=== PATIENT | female | born 1965 | race Caucasian/White ===

== ENCOUNTER 2024-06-25 09:18 | Inpatient (IN) | payer OTHER, SELFPAY ==
--- NOTE | 2024-06-25 | ECG_ITS ---
Test Reason : TACHYCARDIA Blood Pressure : / mmHG Vent. Rate : 136 BPM Atrial Rate : 136 BPM P-R Int : 134 ms QRS Dur : 072 ms QT Int : 288 ms P-R-T Axes : 037 065 056 degrees QTc Int : 433 ms Sinus tachycardia Artifact present Borderline ECG When compared with ECG of 29-NOV-2019 10:04, Precordial T wave changes not present anymore Referred By: Generic ED Physician Electronically Signed By:Jose Kidd
--- NOTE | 2024-06-25 | ECG_ITS ---
Test Reason : elevated troponin Blood Pressure : / mmHG Vent. Rate : 127 BPM Atrial Rate : 127 BPM P-R Int : 126 ms QRS Dur : 070 ms QT Int : 318 ms P-R-T Axes : 038 038 060 degrees QTc Int : 462 ms Poor data quality, interpretation may be adversely affected Sinus tachycardia Otherwise normal ECG When compared with ECG of 25-JUN-2024 09:37, Criteria for Anterior infarct are no longer Present Referred By: Marie Godwin Electronically Signed By:Jose Kidd
[2024-06-25 09:34] VITALS: BP 183/112; BP 184/103; PULSE 130; PULSE 136; RESP 18; TEMP 36.8; O2SAT 98; BMI 32.0
--- NOTE | 2024-06-25 10:01 | ED_ITS ---
HPI - Alcohol General Chief Complaint: ETOH/Substance Use Stated Complaint: Nausea, vomiting Time Seen by Provider: 06/25/24 09:40 Source: patient Mode of arrival: EMS Limitations: no limitations History of Present Illness ED Provider: Dr. 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 Patient states that she had 7 months of sobriety but secondary to social stressors she started drinking again last night. She states that she drank 2 pints of vodka last night with the last drink being at 06:00. She states that around midnight she developed a pressure in her chest. She points to her sternum when asked to localize the pain. She states it is a constant, pressure-like pain which is 8/10 at its worse. The pain does not change with breathing and with movement. She states she has had similar pain in the past. She was also complaining of diffuse abdominal pain which is increased in the left lower quadrant area where she has a hernia. She states she has had nausea and vomited several times prior to coming to the emergency department and during transport. Patient states she does have an anxiety disorder and takes benzodiazepines for this. She also states she gets alcohol withdrawal and alcohol withdrawal seizures. She also has had DTs with hallucinations in the past Related Data Home Medications ?Medication ?Instructions ?Recorded ?Confirmed clonazepam 0.5 mg tablet 0.5 mg PO BID 06/25/24 duloxetine 30 mg capsule,delayed 30 mg PO BID 06/25/24 release esomeprazole magnesium 20 mg 20 mg PO BID 06/25/24 capsule,delayed release folic acid 1 mg tablet 1 mg PO DAILY 06/25/24 gabapentin 600 mg tablet 600 mg PO TID 06/25/24 levothyroxine 137 mcg tablet 137 mcg PO DAILY 06/25/24 lisinopril 20 mg tablet 20 mg PO DAILY 06/25/24 magnesium oxide 400 mg (241.3 mg 400 mg PO DAILY 06/25/24 magnesium) tablet metoprolol succinate 50 mg 50 mg PO DAILY 06/25/24 tablet,extended release 24 hr trazodone 150 mg tablet 150 mg PO BEDTIME 06/25/24 vitamin B complex (Vitamins B 1 tab PO DAILY 06/25/24 Complex tablet) Allergies Allergy/AdvReac Type Severity Reaction Status Date / Time codeine [Codeine] Allergy Mild SENSATION-BUGS Verified 06/25/24 09:37 CRAWLING ON SKIN acetaminophen [Vicodin] Allergy Unknown Unknown Verified 06/25/24 09:37 hydrocodone [Vicodin] Allergy Unknown Unknown Verified 06/25/24 09:37 Iodinated Contrast Media Allergy Unknown ITCHY,RASH Verified 06/25/24 09:37 [CONTRAST, IV] Codeine Sulfate Allergy Unknown Unknown Uncoded 06/25/24 09:37 From VICODIN Allergy Unknown SENSATION-BUGS Uncoded 05/18/20 15:13 CRAWLING ON SKIN IVP contrast dye Allergy Unknown Unknown Uncoded 06/25/24 09:37 Review of Systems 2 Review of Systems: Yes all other systems are reviewed and are negative [facility] Past Medical History [facility] Narrative: Social history: She denies tobacco use. She was sober for several months but drank 2 pt of vodka last night with the last drink being at 06:00. She denies drug use. Medical History (Updated 06/25/24 @ 17:04 by Luis Kelly MD) History of ETOH abuse Social History Social History Alcohol intake: current Alcohol intake frequency: 3 or more drinks per day Alcohol type: hard liquor Smoked in Last 30 Days: No Advance Directives: No Advance Directives Information Provided: Yes Do you have a plan to hurt others: No Plan Patient : No Physical Exam ED Vital Signs: Vital Signs - 24 hr 06/25/24 09:34 06/25/24 11:38 06/25/24 15:01 Temperature 98.3 F 98.3 F 97.7 F Pulse Rate 136 H 140 H 148 H Respiratory Rate 18 22 H 18 Blood Pressure 184/103 H 168/88 H 161/78 H Pulse Oximetry 98 98 100 Oxygen Delivery Method Room Air Room Air Room Air BMI result Body Mass Index 32.0 Vital signs revealed an elevated heart rate of 136 and an elevated blood pressure of 184/103 otherwise unremarkable Exam: General: Awake, alert, the patient appears to be very anxious, she was tremulous, she was diaphoretic Head: Normocephalic, atraumatic EENT: PERRL, Lids normal, sclera normal, conjunctiva normal, nose normal , ears normal, throat without erythema or exudates Neck: Supple, no adenopathy Lung: breath sounds symmetric, no wheezing, rales or rhonchi Chest: symmetric movement, nontender Heart: tachycardia with a regular rate, normal S1-S2 no murmurs rubs or gallops Abdomen: soft, obese, mild to moderate diffuse tenderness, increased tenderness in the left lower quadrant, normoactive bowel sounds, no voluntary or involuntary guarding Back: no vertebral tenderness, no CVAT Extremities: no deformities, moves all extremities symmetrically Neuro: Awake, alert, oriented, normal speech, cranial nerves intact, moves all extremities symmetrically Skin: Patient has erythema to her face which is not warm to touch, she also had several excoriated lesion with no evidence for cellulitis Psych: Anxious, cooperative Medical Decision Making Medical Decision Making MDM Narrative: 59-year-old female history of alcohol use disorder with delirium tremens and alcohol withdrawal seizure, hypertension, 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 She drank 2 pt of vodka over the last 24 hours her last drink at 06:00 hours this morning. On presentation the patient was diaphoretic, tremulous, vital signs revealed elevated blood pressure of 184/103 at elevated pulse of 130. Patient had diffuse abdominal tenderness with increased tenderness in her left lower quadrant area. Differential diagnosis: ?Includes but is not limited to myocardial infarction, myocardial ischemia, alcohol withdrawal, anxiety, electrolyte abnormalities, anemia Course: 16:57 My interpretation patient's laboratory evaluation as follows: CBC was normal. Bicarb low 14. BUN elevated 25 with a normal creatinine of 1.26. AST and ALT elevated 71 and 85. Ethanol level elevated 89. Lipase normal 17. High sensitive troponin I was detectable but not elevated at 4.3. Repeat is pending. Patient's presentation was consistent with alcohol withdrawal and she was placed on the phenobarbital protocol 12 milligrams/kilogram IM in 3 divided doses. Patient was also treated with Reglan 10 mg IV and Benadryl 50 mg IV and required a 2nd dose of these medications to control her nausea. Patient was also treated with normal saline IV x2 L. Patient does appear to improve but she still is hypertensive and tachycardic and will need to be admitted for further manage her alcohol withdrawal. I did discuss admission over tiger text with the covering hospitalist, Dr. Trinh. Admission/Observation Consideration of admission/observation: Escalation of care including admission/observation considered (Yes) Consult Healthcare Provider Management of the patient was discussed with: Hospitalist (Gayathri) Lab Data MDM Lab Attestation statement: I reviewed the patient's lab results. 06/25/24 10:37 06/25/24 10:37 Labs: Lab Results 06/25/24 Range/Units 10:37 WBC 11.0 H (4.8-10.8) X10*3/uL RBC 4.36 (4.20-5.50) X10*6/uL Hgb 14.2 (12.0-16.0) g/dl Hct 42.4 (37.0-47.0) % MCV 97.2 (80.0-98.0) fL MCH 32.6 (27.0-33.0) pg MCHC 33.5 (31.0-35.0) g/dl RDW 14.6 (11.0-16.0) % Plt Count 350 (160-400) X10*3/uL MPV 8.9 L (9.4-12.3) fL Immature Gran % (Auto) 0.3 (0.0-0.4) % Neut % (Auto) 83.6 H (45-73) % Lymph % (Auto) 11.7 L (20-40) % Granite % (Auto) 3.6 (2-11) % Eos % (Auto) 0.0 (0-4) % Baso % (Auto) 0.8 (0-2) % Lymph # (Auto) 1.3 (1.2-4.9) X10*3/uL Granite # (Auto) 0.4 (0.1-1.2) X10*3/uL Eos # (Auto) 0.0 (0.0-0.4) X10*3/uL Baso # (Auto) 0.1 (0.0-0.2) X10*3/uL Abs Immat Gran (auto) 0.03 (0.00-0.03) X10*3/uL Absolute Neuts (auto) 9.2 H (2.0-8.3) x10*3/uL Absolute Nucleated RBC 0.000 (0.0-0.012) X10*3/uL Nucleated RBC % (auto) 0.0 (0.0-0.2) /100WBC Sodium 140 (135-145) mmol/L Potassium 4.5 (3.3-5.1) mmol/L Chloride 93 L (96-108) mmol/L Carbon Dioxide 14 L (22-29) mmol/L Anion Gap 38 H (12-20) BUN 25 H (9-16) mg/dL Creatinine 1.26 (0.5-1.4) mg/dL Estim Creat Clear Calc 46.8 Estimated GFR 43 Random Glucose 116 H (60-115) mg/dL Calcium 10.4 H (8.4-10.2) mg/dL Magnesium 2.1 (1.6-2.6) mg/dL Total Bilirubin 0.4 (0.0-1.0) mg/dL AST 71 H (5-31) U/L ALT 85 H (0-31) U/L Alkaline Phosphatase 75 (39-117) U/L Troponin I High Sens 4.3 (<3.5-17.0) ng/L Total Protein 9.1 H (6.5-8.0) g/dL Albumin 5.2 H (3.5-5.0) g/dL Lipase 17 (8-78) U/L Ethyl Alcohol 89 mg/dL Independent Interpretation I performed an independent interpretation of an: EKG Interpretation: My independent interpretation patient's 12 EKG done at 09:37 hours is as follows: Sinus tachycardia with a rate of 138, normal MO interval, QRS duration and QTC interval, no ST segment elevation, no ST segment depression, no significant T-wave abnormalities, no PACs, no PVCs Chronic Conditions Patient?s care impacted by: Hypertension and Other (Alcohol use disorder) Medications Administered Generic Name Dose Route Start Last Admin Trade Name Freq PRN Reason Stop Dose Admin Phenobarbital Sodium 180 mg 06/25/24 15:00 06/25/24 15:34 Phenobarbital Sodium 130 Mg/Ml Vial Im Q3hx2 IM 06/25/24 18:01 180 mg Q3H ELEAZAR Administration Discontinued Medications Generic Name Dose Route Start Last Admin Trade Name Freq PRN Reason Stop Dose Admin Diphenhydramine HCl 50 mg 06/25/24 10:48 06/25/24 12:14 Diphenhydramine Hcl 50 Mg/Ml Vial IVPUSH 06/25/24 10:49 50 mg ONCE STA Administration Sodium Chloride 1,000 mls @ 999 mls/hr 06/25/24 09:53 06/25/24 12:00 Ns IV 06/25/24 10:53 Infused .Q1H1M STA Infusion Lorazepam 2 mg 06/25/24 09:53 06/25/24 10:38 Lorazepam 2 Mg/Ml Vial IVPUSH 06/25/24 09:54 2 mg STAT STA Administration Metoclopramide HCl 10 mg 06/25/24 10:48 06/25/24 12:14 Metoclopramide Hcl 10 Mg/2 Ml Vial IVPUSH 06/25/24 10:49 10 mg ONCE STA Administration Phenobarbital Sodium 240 mg 06/25/24 12:15 06/25/24 12:45 Phenobarbital Sodium 130 Mg/Ml Im Once IM 06/25/24 12:16 240 mg ONCE ONE Administration Critical Care Time Critical Care Time Critical Care Time: Yes Total Critical Care Time: 80 Attestation: Critical Care: The patient was critically ill with a high probability of imminent or life threatening deterioration. I spent greater than 30 minutes of discontinuous time evaluating the patient,delivering critical care at the bedside, discussing and evaluating pertinent data with consultants. Critical care time does not include time spent performing separately billable procedures or teaching. Total time spent performing critical care was 80 minutes. Discharge Plan Discharge Patient Disposition: Admitted As Inpatient Print Language: Spanish
[2024-06-25] MEDS: 0.9 % Sodium Chloride 1,000 ML 999 ML IV ×2 (10:38→17:02)
[2024-06-25] MEDS: LORazepam 2 MG/ML VIAL IVPUSH (10:38)
[2024-06-25 10:42] LABS: MANUAL DIFF FLAG NO
--- NOTE | 2024-06-25 10:43 | PC.NURSE ---
pt a&ox2, states she drank alot of vodka overnight after life stressors, bus monitor sinus tach, pt noted to be hypertensive-pt states she did not take any of her normal medications. after a period of time she was c/o chest pain, pt also stated she has a history of withdrawal seizures, seizure pads placed, fall precations placed as well. pt is a difficult stick- provider attempted 2 EJs without success, this nurse attempted 2 IVs to her foot with provider at bedside which were not successful, PA attempted a US guided to upper arm without success the first time, but was able to gain access the second attempt. Nurse educator Enrike was tiger texted and asked to help obtain another site as well, she is currently at bedside attempting access with the new US IV. Pt IVF were hung per order, pt also was given 2mg ativan. pt was moved from bed 14 to bed 17 to have a better visual eye on patient.
[2024-06-25 10:48] LABS: Basophils Absolute Auto 0.1 X10*3/uL (0.0-0.2); Basophils Percent Auto 0.8 % (0-2); Hematocrit 42.4 % (37.0-47.0); Hemoglobin 14.2 g/dl (12.0-16.0); Imm Gran Abs Auto 0.03 X10*3/uL (0.00-0.03); Imm Gran Pct Auto 0.3 % (0.0-0.4); Lymphocytes Absolute Auto 1.3 X10*3/uL (1.2-4.9); Lymphocytes Percent Auto 11.7 % (20-40); Mean Corpuscular HGB Conc 33.5 g/dl (31.0-35.0); Mean Corpuscular Hemoglobin 32.6 pg (27.0-33.0); Mean Corpuscular Volume 97.2 fL (80.0-98.0); Mean Platelet Volume 8.9 fL (9.4-12.3); Monocytes Absolute Auto 0.4 X10*3/uL (0.1-1.2); Monocytes Percent Auto 3.6 % (2-11); Neutrophils Absolute Auto 9.2 x10*3/uL (2.0-8.3); Neutrophils Percent Auto 83.6 % (45-73); Platelet Count 350 X10*3/uL (160-400); Red Blood Count 4.36 X10*6/uL (4.20-5.50); Red Cell Distribution Width 14.6 % (11.0-16.0)
[2024-06-25 11:05] LABS: Alanine Aminotransferase 85 U/L (0-31); Albumin Level 5.2 g/dL (3.5-5.0); Alkaline Phosphatase 75 U/L (39-117); Anion Gap 38 (12-20); Aspartate Amino Transferase 71 U/L (5-31); Bilirubin Total 0.4 mg/dL (0.0-1.0); Blood Urea Nitrogen 25 mg/dL (9-16); Calcium 10.4 mg/dL (8.4-10.2); Carbon Dioxide 14 mmol/L (22-29); Chloride 93 mmol/L (96-108); Creatinine Clr Calc Pharmacy 46.8; Estimated Glomerular Filt Rate 43; Ethanol 89 mg/dL; Glucose Random 116 mg/dL (60-115); Lipase 17 U/L (8-78); Magnesium 2.1 mg/dL (1.6-2.6); Potassium 4.5 mmol/L (3.3-5.1); Sodium 140 mmol/L (135-145); Total Protein 9.1 g/dL (6.5-8.0); Troponin-I High Sensitivity 4.3 ng/L (<3.5-17.0)
[2024-06-25 11:38] VITALS: BP 168/88; PULSE 140; RESP 22; TEMP 36.8; O2SAT 98
[2024-06-25] MEDS: Metoclopramide HCl 10 MG/2 ML VIAL IVPUSH ×2 (12:14→17:02)
[2024-06-25] MEDS: diphenhydrAMINE HCL 50 MG/ML VIAL IVPUSH ×2 (12:14→17:02)
[2024-06-25] MEDS: PHENobarbitaL sodium 130 MG/ML IM ONCE 240 MG IM (12:45)
--- NOTE | 2024-06-25 12:53 | PC.NURSE ---
pt currently a&ox3, rt arm iv access infiltrated- left arm access is patient. court monitor continues to be sinus tach, ciwa was 11, provider has opted to start phenobarb protocol- pt agreeable, seizure precautions intact, fall precautions intact, pt medicated per order, will continue to monitor
[2024-06-25 15:01] VITALS: BP 161/78; PULSE 148; RESP 18; TEMP 36.5; O2SAT 100
[2024-06-25] MEDS: PHENobarbitaL sodium 130 MG/ML VIAL IM Q3Hx2 180 MG IM ×2 (15:34→19:19)
--- NOTE | 2024-06-25 16:07 | PC.NURSE ---
pt c/o lower abd pain, bladder scan performed and pt was requesting a straight cath as she has had a problem urinating in the past. this nurse spoke with the provider who ordered straight cath, this nurse attempted x2 without success, essie Morris attempted x2 without success. Evening provider notified and he did a bedside ultrasound- he is going to speak with the day shift provider and come up with a plan. pt continues to be tachy on the monitoring analyst, she is a&ox3 and calm/watching tv, pt was medicated with second dose of phenobarb. call joaquin within reach, will continue to monitor
--- NOTE | 2024-06-25 17:22 | MHC.EDTECH ---
this tech attempted to draw repeat troponin from pt, pt is a hard stick, phlebotomy to be paged
[2024-06-25 17:36] VITALS: BP 151/85; PULSE 140; RESP 16; TEMP 36.8; O2SAT 98
--- NOTE | 2024-06-25 17:40 | PM.IMHP ---
History of Present Illness Date of Service: 06/25/24 Chief Complaint: Lethargy nausea vomiting 59F PMH alcohol dependence, hypothyroid, mood disorder, hypertension presented with weakness, nausea vomiting. Patient states that she has been 7 months sober but started to drink again about 2 days prior to presentation. Since then has had severe abdominal pain, nausea, vomiting, poor p.o. intake. Patient found to have alcoholic ketoacidosis, also noting difficulty urinating. Review of Systems Review of Systems: Yes all other systems are reviewed and are negative [facility] Medical History History of ETOH abuse Social History Alcohol intake: current Alcohol intake frequency: 3 or more drinks per day Alcohol type: hard liquor Smoked in Last 30 Days: No Advance Directives: No Advance Directives Information Provided: Yes Do you have a plan to hurt others: No Plan Patient : No Meds Allergies Allergy/AdvReac Type Severity Reaction Status Date / Time codeine [Codeine] Allergy Mild SENSATION-BUGS Verified 06/25/24 09:37 CRAWLING ON SKIN acetaminophen [Vicodin] Allergy Unknown Unknown Verified 06/25/24 09:37 hydrocodone [Vicodin] Allergy Unknown Unknown Verified 06/25/24 09:37 Iodinated Contrast Media Allergy Unknown ITCHY,RASH Verified 06/25/24 09:37 [CONTRAST, IV] Codeine Sulfate Allergy Unknown Unknown Uncoded 06/25/24 09:37 From VICODIN Allergy Unknown SENSATION-BUGS Uncoded 05/18/20 15:13 CRAWLING ON SKIN IVP contrast dye Allergy Unknown Unknown Uncoded 06/25/24 09:37 Active Medications: Current Medications Sodium Chloride (Ns) 1,000 mls @ 999 mls/hr IV .Q1H1M STA Stop: 06/25/24 17:50 Last Admin: 06/25/24 17:02 Dose: 999 mls/hr Pharmacy Consult (Consult Rx Etoh Phenob Im/Po) 1 each MISCELLANE ONCE PRN; Protocol PRN Reason: Consult order Phenobarbital (Phenobarbital 15 Mg Tablet) 45 mg PO BID ELEAZAR Stop: 06/27/24 21:01 Phenobarbital (Phenobarbital 30 Mg Tablet) 30 mg PO BID ELEAZAR Stop: 06/29/24 21:01 Phenobarbital (Phenobarbital 30 Mg Tablet) 30 mg PO DAILY [facility] Stop: 07/01/24 09:01 Phenobarbital Sodium (Phenobarbital Sodium 130 Mg/Ml Vial Im Q3hx2) 180 mg IM Q3H ELEAZAR Stop: 06/25/24 18:01 Last Admin: 06/25/24 15:34 Dose: 180 mg Home Medications ?Medication ?Instructions ?Recorded ?Confirmed ?Last Taken ?Type clonazepam 0.5 mg tablet 0.5 mg PO BID 06/25/24 06/25/24 2 Days Ago History ~06/23/24 duloxetine 30 mg capsule,delayed 30 mg PO BID 06/25/24 06/25/24 2 Days Ago History release ~06/23/24 esomeprazole magnesium 20 mg 20 mg PO BID 06/25/24 06/25/24 2 Days Ago History capsule,delayed release ~06/23/24 folic acid 1 mg tablet 1 mg PO DAILY 06/25/24 06/25/24 2 Days Ago History ~06/23/24 gabapentin 600 mg tablet 600 mg PO TID 06/25/24 06/25/24 2 Days Ago History ~06/23/24 levothyroxine 137 mcg tablet 137 mcg PO DAILY@0630 06/25/24 06/25/24 2 Days Ago History ~06/23/24 lisinopril 20 mg tablet 20 mg PO DAILY 06/25/24 06/25/24 2 Days Ago History ~06/23/24 magnesium oxide 400 mg (241.3 mg 400 mg PO DAILY 06/25/24 06/25/24 2 Days Ago History magnesium) tablet ~06/23/24 metoprolol succinate 50 mg 50 mg PO DAILY 06/25/24 06/25/24 2 Days Ago History tablet,extended release 24 hr ~06/23/24 thiamine HCl (vitamin B1) 100 mg 100 mg PO BID 06/25/24 06/25/24 2 Days Ago History tablet ~06/23/24 trazodone 150 mg tablet 150 mg PO BEDTIME 06/25/24 06/25/24 2 Days Ago History ~06/23/24 vitamin B complex (Vitamins B 1 tab PO DAILY 06/25/24 06/25/24 2 Days Ago History Complex tablet) ~06/23/24 Physical Exam Vital Signs and Narrative: Vital Signs: Last Vital Signs Temp 98.2 F 06/25/24 17:36 Pulse 140 H 06/25/24 17:36 Resp 16 06/25/24 17:36 BP 151/85 H 06/25/24 17:36 Pulse Ox 98 06/25/24 17:36 O2 Del Method Room Air 06/25/24 17:36 BMI result Body Mass Index 32.0 Dre complexion, tremulous, abdomen soft and nontender, alert oriented x3 Results Labs 06/25/24 10:37 06/25/24 10:37 Labs: Laboratory Results - last 24 hr 06/25/24 10:37 MCV 97.2 MCH 32.6 MCHC 33.5 RDW 14.6 Plt Count 350 MPV 8.9 L Immature Gran % (Auto) 0.3 Neut % (Auto) 83.6 H Lymph % (Auto) 11.7 L Tate % (Auto) 3.6 Eos % (Auto) 0.0 Baso % (Auto) 0.8 Lymph # (Auto) 1.3 Tate # (Auto) 0.4 Eos # (Auto) 0.0 Baso # (Auto) 0.1 Abs Immat Gran (auto) 0.03 Absolute Neuts (auto) 9.2 H Absolute Nucleated RBC 0.000 Nucleated RBC % (auto) 0.0 Anion Gap 38 H Estim Creat Clear Calc 46.8 Estimated GFR 43 Random Glucose 116 H Calcium 10.4 H Magnesium 2.1 Total Bilirubin 0.4 AST 71 H ALT 85 H Alkaline Phosphatase 75 Troponin I High Sens 4.3 Total Protein 9.1 H Albumin 5.2 H Lipase 17 Ethyl Alcohol 89 Assessment and Plan (1) Abdominal pain: Qualifiers: Abdominal location: generalized Qualified Code(s): R10.84 - Generalized abdominal pain Status: Acute Plan 59F PMH alcohol dependence, hypothyroid, mood disorder, hypertension presented with weakness, nausea vomiting Acute alcoholic ketoacidosis Thiamine, folic acid, IV hydration, monitor Alcohol dependence with withdrawal Reports 7 months sobriety but showing signs of withdrawal, will treat with phenobarb and monitor CIWA Urinary retention due to acute alcohol intoxication Monitor bladder scan, straight cath p.r.n. We will give dose of Flomax Hypothyroid Levothyroxine Mood disorder clonazepam duloxetine Hypertension lisinopirl, toprol DVT prophylaxis with Lovenox Full Code Patient with significant electrolyte abnormalities due to alcohol use also with withdrawal expected require at least 2 midnights inpatient Quality Stroke Does the patient have a stroke diagnosis?: No VTE Prior VTE?: No VTE Risk Level:: Medical - moderate - high VTE Device Contraindication: Treatment Not Indicated VTE Drug Contraindication: N/A - Med Ordered
--- NOTE | 2024-06-25 18:11 | PHA.MEDREC ---
Addendum entered by Katia Virgen RPh 06/25/24 18:44: MED rec checked by [facility] Original Note: Pharmacy Consult ? Medication Reconciliation Pharmacy has completed the medication reconciliation. Confirmed medications with patient. Patient states she has not taken her medications in about 2-3 days.
[2024-06-25 18:23] LABS: Phosphorus 1.7 mg/dL (2.7-4.5)
[2024-06-25 18:55] LABS: Appearance Urine Clear; Color Urine Yellow; Glucose Urine UA Negative (Negative); Leukocyte Esterase Urine Negative (Negative); Nitrite Urine Negative (Negative); PH 5.5 (5.0-9.0); Specific Gravity - Urine 1.025 (1.005-1.025); UMIC TRIGGER UACC YES; Urine Blood Trace (Negative); Urine Ketones >=160 mg/dL (Negative); Urine Protein 100 (2+) mg/dL (Neg-Trace)
[2024-06-25 19:00] LABS: Bacteria Urine None Seen (None Seen); RBC Urine 0-2 /HPF (0-2); Squamous Epithelial Cell Urine 0-2 /HPF (0-2); WBC Urine 0-5 /HPF (0-5)
[2024-06-25 19:04] LABS: Amphetamine Screen Urine Not Detected (Not Detect); Barbiturates, Urine POSITIVE (Not Detect); Benzodiazepines Screen Urine Not Detected (Not Detect); Buprenorphine Scr Not Detected (Not Detect); Cannabinoid Screen Urine Not Detected (Not Detect); Cocaine Screen Urine Not Detected (Not Detect); Fentanyl, urine Not Detected (Not Detect); Methadone Screen, Urine Not Detected (Not Detect); Opiate Screen Urine Not Detected (Not Detect); Oxycodone Screen Urine Not Detected (Not Detect); Phencyclidine Screen Urine Not Detected (Not Detect)
[2024-06-25] MEDS: Tamsulosin HCL 0.4 MG CAPSULE PO (19:20)
[2024-06-25] MEDS: Thiamine HCL 500 MG in 0.9 % Sodium Chloride 100 ML 210 MG IV (19:26)
--- NOTE | 2024-06-25 19:29 | PC.NURSE ---
pt medicated per order/ivf continue to run slowly/iv thiamine running per order, urine was obtained, pt remains sinus tach on offset machine operator
--- NOTE | 2024-06-25 19:37 | PC.NURSE ---
Addendum entered by Candelario Rodriges 06/25/24 19:45: md made aware of all above and temp 99.9F. pt reports 04/10 BEASLEY and requests tylenol, medicated per oct. Original Note: assumed care of pt at this time. sinus tachy on monitor at 140s. noticed trop levels, suggested to MD to repeat, MD ordered for 2100. pt is axox4 was able to urinate sample obtained. pt denies cp/sob. vitals as documented. thiamine incompatible with sodium bicarb, awaiting infusion to start drip. ivf also infusing at this time. call joaquin within reach.
[2024-06-25 19:40] VITALS: BP 162/67; PULSE 140; RESP 22; TEMP 37.7; O2SAT 98
[2024-06-25] MEDS: Acetaminophen 325 MG TABLET 650 MG PO (19:45)
[2024-06-25 20:11] VITALS: BP 167/87; PULSE 140; RESP 18; TEMP 37.1; O2SAT 99
[2024-06-25] MEDS: Sodium Bicarbonate 8.4% 150 MEQ in Dextrose 5 % 850 ML 75 MEQ IV (20:16)
[2024-06-25 21:17] VITALS: BMI 33.5
[2024-06-25] MEDS: DULoxetine HCl 30 MG CAPSULE.DR PO (21:27)
[2024-06-25] MEDS: Melatonin 3 MG TABLET 6 MG PO (21:27)
[2024-06-25] MEDS: traZODone HCL 50 MG TABLET 150 MG PO (21:27)
[2024-06-25] MEDS: Thiamine HCL 100 MG TABLET PO (21:27)
[2024-06-25] MEDS: clonazePAM 0.5 MG TABLET PO (21:27)
[2024-06-25] MEDS: 0.9 % Sodium Chloride Flush 3 ML SYRINGE IVFLUSH (21:28)
[2024-06-25] MEDS: Gabapentin 600 MG TABLET PO (21:28)
--- NOTE | 2024-06-25 21:50 | PM.EVENT ---
Event Note Date of Service: 06/25/24 Event Note: Nurse reported elevated troponin. Will obtain EKG. Giving 1 dose of therapeutic Lovenox and aspirin. Repeat troponin in a.m.. Cardiology consult and echo pending repeat troponin Time Spent With Patient Time: Total time managing care of this patient today ____ minutes.
[2024-06-25 21:51] LABS: Troponin-I High Sensitivity 56.5 ng/L (<3.5-17.0)
[2024-06-25] MEDS: Enoxaparin Sodium 80 MG/0.8 ML SYRINGE SUBCUT (22:25)
[2024-06-25] MEDS: Aspirin 325 MG TABLET PO (22:25)
[2024-06-26] VITALS (8 sets, daily range): BP systolic 118–146; BP diastolic 59–86; PULSE 101–122; RESP 18–20; TEMP 36.1–37.2; O2SAT 93–97
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
[2024-06-26] MEDS: Levothyroxine Sodium 112 MCG, Levothyroxine Sodium 25 MCG 137 MCG PO (06:19)
[2024-06-26] MEDS: Omeprazole 20 MG CAPSULE.DR PO ×2 (06:19→15:51)
[2024-06-26 07:27] LABS: Hematocrit 30.2 % (37.0-47.0); Hemoglobin 10.4 g/dl (12.0-16.0); Mean Corpuscular HGB Conc 34.4 g/dl (31.0-35.0); Mean Corpuscular Volume 95.9 fL (80.0-98.0); Mean Platelet Volume 9.6 fL (9.4-12.3); Platelet Count 178 X10*3/uL (160-400); Red Blood Count 3.15 X10*6/uL (4.20-5.50); Red Cell Distribution Width 14.1 % (11.0-16.0); White Blood Count 4.5 X10*3/uL (4.8-10.8)
[2024-06-26 07:37] LABS: Troponin-I High Sensitivity 20.3 ng/L (<3.5-17.0)
[2024-06-26 07:45] LABS: Alanine Aminotransferase 44 U/L (0-31); Albumin Level 3.7 g/dL (3.5-5.0); Alkaline Phosphatase 50 U/L (39-117); Aspartate Amino Transferase 52 U/L (5-31); Bilirubin Direct 0.2 mg/dL (0.0-0.5); Bilirubin Total 0.8 mg/dL (0.0-1.0); Blood Urea Nitrogen 8 mg/dL (9-16); Estimated Glomerular Filt Rate > 60; Glucose Fasting 130 mg/dL (60-99); Magnesium 1.7 mg/dL (1.6-2.6); Total Protein 6.3 g/dL (6.5-8.0)
[2024-06-26 08:05] LABS: Anion Gap 20 (12-20); Calcium 8.1 mg/dL (8.4-10.2); Carbon Dioxide 23 mmol/L (22-29); Chloride 95 mmol/L (96-108); Potassium 3.8 mmol/L (3.3-5.1); Sodium 134 mmol/L (135-145)
[2024-06-26] MEDS: Thiamine HCL 100 MG TABLET PO ×2 (08:50→21:05)
[2024-06-26] MEDS: Multivitamin TABLET 1 TAB PO (08:50)
[2024-06-26] MEDS: Sodium,Potassium Phosphates POWD.PACK 2 PACKET PO (08:50)
[2024-06-26] MEDS: Gabapentin 600 MG TABLET PO ×3 (08:50→21:06)
[2024-06-26] MEDS: PHENobarbitaL 15 MG TABLET 45 MG PO ×2 (08:50→21:06)
[2024-06-26] MEDS: DULoxetine HCl 30 MG CAPSULE.DR PO ×2 (08:50→21:06)
[2024-06-26] MEDS: Metoprolol Succinate ER 50 MG TAB.ER.24H PO (08:50)
[2024-06-26] MEDS: clonazePAM 0.5 MG TABLET PO ×2 (08:50→21:06)
[2024-06-26] MEDS: 0.9 % Sodium Chloride Flush 3 ML SYRINGE IVFLUSH (08:51)
[2024-06-26] MEDS: Magnesium Oxide 400 MG TABLET PO (08:51)
[2024-06-26] MEDS: lisinopriL 20 MG TABLET PO (08:51)
[2024-06-26] MEDS: Enoxaparin Sodium 40 MG/0.4 ML SYRINGE SUBCUT (08:51)
[2024-06-26] MEDS: Folic Acid 1 MG TABLET PO (08:51)
[2024-06-26] MEDS: Sodium Bicarbonate 8.4% 150 MEQ in Dextrose 5 % 850 ML 75 MEQ IV (08:52)
--- NOTE | 2024-06-26 09:08 | HO.PM.IMPN ---
Subjective Subjective Date of Service: 06/26/24 Interval History: less nausea today Physical Exam Vital Signs: Vital Signs: Last Vital Signs Temp 97.3 F 06/26/24 07:13 Pulse 105 H 06/26/24 08:50 Resp 18 06/26/24 07:13 BP 146/82 H 06/26/24 08:51 Pulse Ox 93 06/26/24 07:13 O2 Del Method Room Air 06/26/24 07:13 BMI result Body Mass Index 33.5 less tremulous, General: AO X 3, no acute distress Resp: CTA bilateral, no accessory muscles used CVS: S1,S2,RRR GI: soft, non tender, non distended Neuro: motor grossly intact, alert Psych: appropriate affect, appropriate insight Objective Data Active Medications Acetaminophen (Acetaminophen 325 Mg Tablet) 650 mg PO Q6H PRN PRN Reason: Pain, Mild (Pain Scale 1-3), fever or headache Last Admin: 06/25/24 19:45 Dose: 650 mg Documented By: FRANSICO Calcium Carbonate (Calcium Carbonate 750 Mg Tab.Chew) 750 mg PO Q4H PRN PRN Reason: Heartburn Clonazepam (Clonazepam 0.5 Mg Tablet) 0.5 mg PO BID [facility] Last Admin: 06/26/24 08:50 Dose: 0.5 mg Documented By: BRANDT Duloxetine HCl (Duloxetine Hcl 30 Mg Capsule.Dr) 30 mg PO BID [facility] Last Admin: 06/26/24 08:50 Dose: 30 mg Documented By: BRANDT Enoxaparin Sodium (Enoxaparin Sodium 40 Mg/0.4 Ml Syringe) 40 mg SUBCUT Q24H [facility] Last Admin: 06/26/24 08:51 Dose: 40 mg Documented By: BRANDT Folic Acid (Folic Acid 1 Mg Tablet) 1 mg PO DAILY [facility] Last Admin: 06/26/24 08:51 Dose: 1 mg Documented By: BRANDT Gabapentin (Gabapentin 600 Mg Tablet) 600 mg PO TID [facility] Last Admin: 06/26/24 08:50 Dose: 600 mg Documented By: BRANDT Dextrose/Sodium Chloride (D5ns) 1,000 mls @ 100 mls/hr IVCONT .Q10H [facility] Levothyroxine Sodium 112 mcg/ (Levothyroxine Sodium 25 mcg) 137 mcg PO DAILY@0600 [facility] Last Admin: 10/26/24 06:19 Dose: 137 mcg Documented By: JENY Lisinopril (Lisinopril 20 Mg Tablet) 20 mg PO DAILY [facility]; Protocol Last Admin: 06/26/24 08:51 Dose: 20 mg Documented By: BRANDT Magnesium Hydroxide (Milk Of Magnesia 30 Ml Oral.Susp) 30 ml PO DAILY PRN PRN Reason: Constipation Magnesium Oxide (Magnesium Oxide 400 Mg Tablet) 400 mg PO DAILY [facility] Last Admin: 06/26/24 08:51 Dose: 400 mg Documented By: BRANDT Melatonin (Melatonin 3 Mg Tablet) 6 mg PO BEDTIME PRN PRN Reason: Insomnia Last Admin: 06/25/24 21:27 Dose: 6 mg Documented By: JENY Metoprolol Succinate (Metoprolol Succinate Er 50 Mg Tab.Er.24h) 50 mg PO DAILY [facility]; Protocol Last Admin: 06/26/24 08:50 Dose: 50 mg Documented By: BRANDT Multivitamins/Vitamin C (Multivitamin Tablet) 1 tab PO DAILY [facility] Last Admin: 06/26/24 08:50 Dose: 1 tab Documented By: BRANDT Omeprazole (Omeprazole 20 Mg Capsule.Dr) 20 mg PO BID@0630,1630 [facility] Last Admin: 06/26/24 06:19 Dose: 20 mg Documented By: JENY Pharmacy Consult (Consult Rx Etoh Phenob Im/Po) 1 each MISCELLANE ONCE PRN; Protocol PRN Reason: Consult order Phenobarbital (Phenobarbital 15 Mg Tablet) 45 mg PO BID [facility] Stop: 06/27/24 21:01 Last Admin: 06/26/24 08:50 Dose: 45 mg Documented By: BRANDT Phenobarbital (Phenobarbital 30 Mg Tablet) 30 mg PO BID [facility] Stop: 06/29/24 21:01 Phenobarbital (Phenobarbital 30 Mg Tablet) 30 mg PO DAILY [facility] Stop: 07/01/24 09:01 Sodium Chloride (0.9 % Sodium Chloride Flush 3 Ml Syringe) [address] [facility] Last Admin: 06/26/24 08:51 Dose: 3 ml Documented By: BRANDT Thiamine HCl (Thiamine Hcl 100 Mg Tablet) 100 mg PO BID [facility] Last Admin: 06/26/24 08:50 Dose: 100 mg Documented By: BRANDT Trazodone HCl (Trazodone Hcl 50 Mg Tablet) 150 mg PO BEDTIME [facility] Last Admin: 06/25/24 21:27 Dose: 150 mg Documented By: JENY Labs 06/26/24 06:34 06/26/24 06:34 Labs: Laboratory Results - last 24 hr 06/25/24 06/25/24 06/25/24 10:37 16:10 17:57 MCV 97.2 MCH 32.6 MCHC 33.5 RDW 14.6 Plt Count 350 MPV 8.9 L Immature Gran % (Auto) 0.3 Neut % (Auto) 83.6 H Lymph % (Auto) 11.7 L [place] % (Auto) 3.6 Eos % (Auto) 0.0 Baso % (Auto) 0.8 Lymph # (Auto) 1.3 [place] # (Auto) 0.4 Eos # (Auto) 0.0 Baso # (Auto) 0.1 Abs Immat Gran (auto) 0.03 Absolute Neuts (auto) 9.2 H Absolute Nucleated RBC 0.000 Nucleated RBC % (auto) 0.0 Anion Gap 38 H Estim Creat Clear Calc 46.8 Estimated GFR 43 Random Glucose 116 H Fasting Glucose Calcium 10.4 H Phosphorus 1.7 L Magnesium 2.1 Total Bilirubin 0.4 Direct Bilirubin AST 71 H ALT 85 H Alkaline Phosphatase 75 Troponin I High Sens 4.3 56.5 H* D 35.0 H Total Protein 9.1 H Albumin 5.2 H Lipase 17 Urine Color Urine Appearance Urine pH Ur Specific [place] Urine Protein Urine Glucose (UA) Urine Ketones Urine Blood Urine Nitrite Ur Leukocyte Esterase Urine RBC Urine WBC Ur Squamous Epith Cells Urine Bacteria Hyaline Casts Urine Opiates Screen Ur Buprenorphine Scrn Ur Oxycodone Screen Urine Methadone Screen Urine Fentanyl Screen Ur Barbiturates Screen Ur Phencyclidine Scrn Ur Amphetamines Screen U Benzodiazepines Scrn Urine Cocaine Screen U Marijuana (THC) Screen Ethyl Alcohol 89 06/25/24 06/26/24 18:48 06:34 MCV 95.9 MCH 33.0 MCHC 34.4 RDW 14.1 Plt Count 178 D MPV 9.6 Immature Gran % (Auto) Neut % (Auto) Lymph % (Auto) [place] % (Auto) Eos % (Auto) Baso % (Auto) Lymph # (Auto) [place] # (Auto) Eos # (Auto) Baso # (Auto) Abs Immat Gran (auto) Absolute Neuts (auto) Absolute Nucleated RBC 0.000 Nucleated RBC % (auto) 0.0 Anion Gap 20 Estim Creat Clear Calc 65.0 Estimated GFR > 60 Random Glucose Fasting Glucose 130 H Calcium 8.1 L D Phosphorus Magnesium 1.7 Total Bilirubin 0.8 Direct Bilirubin 0.2 AST 52 H ALT 44 H Alkaline Phosphatase 50 Troponin I High Sens 20.3 H Total Protein 6.3 L Albumin 3.7 Lipase Urine Color Yellow Urine Appearance Clear Urine pH 5.5 Ur Specific Mildred 1.025 Urine Protein 100 (2+) H Urine Glucose (UA) Negative Urine Ketones >=160 Urine Blood Trace H Urine Nitrite Negative Ur Leukocyte Esterase Negative Urine RBC 0-2 Urine WBC 0-5 Ur Squamous Epith Cells 0-2 Urine Bacteria None Seen Hyaline Casts 3-5 Urine Opiates Screen Not Detected Ur Buprenorphine Scrn Not Detected Ur Oxycodone Screen Not Detected Urine Methadone Screen Not Detected Urine Fentanyl Screen Not Detected Ur Barbiturates Screen POSITIVE H Ur Phencyclidine Scrn Not Detected Ur Amphetamines Screen Not Detected U Benzodiazepines Scrn Not Detected Urine Cocaine Screen Not Detected U Marijuana (THC) Screen Not Detected Ethyl Alcohol Assessment and Plan (1) Abdominal pain: Status: Acute Plan 59F PMH alcohol dependence, hypothyroid, mood disorder, hypertension presented with weakness, nausea vomiting Acute alcoholic ketoacidosis Thiamine, folic acid, IV hydration, improving elevated troponin suspect demand ischemia no evidence of ACS follow up cardiology Alcohol dependence with withdrawal Reports 7 months sobriety but showing signs of withdrawal, will treat with phenobarb and monitor CIWA Urinary retention due to acute alcohol intoxication resolved Hypothyroid Levothyroxine Mood disorder clonazepam duloxetine Hypertension lisinopirl, toprol DVT prophylaxis with Lovenox Full Code reason for continued hospitalization:still with withdrawal symptoms Quality Stroke Does the patient have a stroke diagnosis?: No VTE Prior VTE?: No VTE Risk Level:: Medical - moderate - high VTE Device Contraindication: Treatment Not Indicated VTE Drug Contraindication: N/A - Med Ordered
[2024-06-26] MEDS: Dextrose 5 % and 0.9 % NaCl 1,000 ML 100 ML IVCONT ×2 (09:27→19:25)
--- NOTE | 2024-06-26 10:23 | MHC.RECOVRN ---
?AUDIT-C?Brief Intervention Pt had positive screen for unhealthy alcohol use on admission, subsequently met with t/w to discuss alcohol use and recovery supports/options. Pt voices concern regarding alcohol use and is aware that drinking at unhealthy levels is known to increase risk of alcohol related health problems. Pt reports earlier this week drinking 2 pints of vodka after being sober for 7 months . Pt expresses how alcohol use has impacted health, including negative outcomes such as her having increased falls, showing me cuts on her hands as we were talking. Discussed risk reduction strategies including drinking below the recommended limit. Provided pt with written resources including information on inpatient and outpatient treatment, TRICE, harm reduction, and recovery coaching. Pt plans to to reach out to her already established acetone recovery worker upon discharge, patient denies our services at this time. Pt provided with t/w contact information if questions or concerns arise. Denies other questions or concerns at this time.?
[2024-06-26] MEDS: Acetaminophen 325 MG TABLET 650 MG PO (12:33)
--- NOTE | 2024-06-26 13:21 | MHC.CM.PN ---
PT REPORTS SHE LIVES ALONE AND HAS A VEGETABLES COOK 2X/WEEK SHE HAS A ROLLATOR, GRAB BARS AND A SHOWER CHAIR FOR DME SHE SAYS SHE HAS A HCP NAMING HER DAUGHTER, COPY REQUESTED PT DOES NOT KNOW THE NAME OF HER PCP BUT SAYS SHE GOES TO [facility] IMM DELIVERED DCP: HOME RESUME VEGETABLES COOK SERVICES VEGETABLES COOK TO TRANSPORT
[2024-06-26] MEDS: PHENobarbitaL sodium 130 MG/ML VIAL 65 MG IM (16:42)
[2024-06-26] MEDS: traZODone HCL 50 MG TABLET 150 MG PO (21:05)
[2024-06-27] VITALS (7 sets, daily range): BP systolic 130–157; BP diastolic 77–99; PULSE 94–111; RESP 16–20; TEMP 36.1–37.2; O2SAT 97–100
[2024-06-27] MEDS: Acetaminophen 325 MG TABLET 650 MG PO (03:41)
[2024-06-27] MEDS: Dextrose 5 % and 0.9 % NaCl 1,000 ML 100 ML IVCONT ×2 (04:49→15:14)
[2024-06-27] MEDS: Levothyroxine Sodium 112 MCG, Levothyroxine Sodium 25 MCG 137 MCG PO (06:06)
[2024-06-27] MEDS: Omeprazole 20 MG CAPSULE.DR PO ×2 (06:06→15:13)
[2024-06-27 07:07] LABS: Hematocrit 31.7 % (37.0-47.0); Hemoglobin 10.4 g/dl (12.0-16.0); Mean Corpuscular HGB Conc 32.8 g/dl (31.0-35.0); Mean Corpuscular Hemoglobin 32.8 pg (27.0-33.0); Mean Platelet Volume 9.5 fL (9.4-12.3); Platelet Count 144 X10*3/uL (160-400); Red Blood Count 3.17 X10*6/uL (4.20-5.50)
[2024-06-27 07:09] LABS: Alanine Aminotransferase 52 U/L (0-31); Albumin Level 3.7 g/dL (3.5-5.0); Alkaline Phosphatase 50 U/L (39-117); Anion Gap 13 (12-20); Aspartate Amino Transferase 60 U/L (5-31); Bilirubin Direct 0.1 mg/dL (0.0-0.5); Bilirubin Total 0.4 mg/dL (0.0-1.0); Blood Urea Nitrogen 4 mg/dL (9-16); Calcium 8.1 mg/dL (8.4-10.2); Carbon Dioxide 26 mmol/L (22-29); Chloride 102 mmol/L (96-108); Creatinine Clr Calc Pharmacy 74.6; Estimated Glomerular Filt Rate > 60; Glucose Fasting 132 mg/dL (60-99); Magnesium 1.6 mg/dL (1.6-2.6); Phosphorus 1.5 mg/dL (2.7-4.5); Potassium 3.4 mmol/L (3.3-5.1); Sodium 138 mmol/L (135-145); Total Protein 6.4 g/dL (6.5-8.0)
--- NOTE | 2024-06-27 08:22 | HO.PM.IMPN ---
Subjective Subjective Date of Service: 06/27/24 Interval History: Overall improved but still with withdrawal symptoms along with diarrhea and nausea Physical Exam Vital Signs: Vital Signs: Last Vital Signs Temp 96.9 F 06/27/24 03:58 Pulse 111 H 06/27/24 03:58 Resp 20 06/27/24 03:58 BP 157/89 H 06/27/24 03:58 Pulse Ox 97 06/27/24 03:58 O2 Del Method Room Air 06/27/24 03:58 BMI result Body Mass Index 33.5 less tremulous, General: AO X 3, no acute distress Resp: CTA bilateral, no accessory muscles used CVS: S1,S2,RRR GI: soft, non tender, non distended Neuro: motor grossly intact, alert Psych: appropriate affect, appropriate insight Objective Data Active Medications Acetaminophen (Acetaminophen 325 Mg Tablet) 650 mg PO Q6H PRN PRN Reason: Pain, Mild (Pain Scale 1-3), fever or headache Last Admin: 06/27/24 03:41 Dose: 650 mg Documented By: TOÑO Calcium Carbonate (Calcium Carbonate 750 Mg Tab.Chew) 750 mg PO Q4H PRN PRN Reason: Heartburn Clonazepam (Clonazepam 0.5 Mg Tablet) 0.5 mg PO BID [facility] Last Admin: 06/26/24 21:06 Dose: 0.5 mg Documented By: TOÑO Duloxetine HCl (Duloxetine Hcl 30 Mg Capsule.Dr) 30 mg PO BID [facility] Last Admin: 06/26/24 21:06 Dose: 30 mg Documented By: TOÑO Enoxaparin Sodium (Enoxaparin Sodium 40 Mg/0.4 Ml Syringe) 40 mg SUBCUT Q24H [facility] Last Admin: 06/26/24 08:51 Dose: 40 mg Documented By: BRANDT Folic Acid (Folic Acid 1 Mg Tablet) 1 mg PO DAILY [facility] Last Admin: 06/26/24 08:51 Dose: 1 mg Documented By: BRANDT Gabapentin (Gabapentin 600 Mg Tablet) 600 mg PO TID [facility] Last Admin: 06/26/24 21:06 Dose: 600 mg Documented By: TOÑO Dextrose/Sodium Chloride (D5ns) 1,000 mls @ 100 mls/hr IVCONT .Q10H [facility] Last Admin: 06/27/24 04:49 Dose: 100 mls/hr Documented By: TOÑO Levothyroxine Sodium 112 mcg/ (Levothyroxine Sodium 25 mcg) 137 mcg PO DAILY@0600 [facility] Last Admin: 06/27/24 06:06 Dose: 137 mcg Documented By: TOÑO Lisinopril (Lisinopril 20 Mg Tablet) 20 mg PO DAILY [facility]; Protocol Last Admin: 06/26/24 08:51 Dose: 20 mg Documented By: BRANDT Magnesium Hydroxide (Milk Of Magnesia 30 Ml Oral.Susp) 30 ml PO DAILY PRN PRN Reason: Constipation Magnesium Oxide (Magnesium Oxide 400 Mg Tablet) 400 mg PO DAILY [facility] Last Admin: 06/26/24 08:51 Dose: 400 mg Documented By: BRANDT Melatonin (Melatonin 3 Mg Tablet) 6 mg PO BEDTIME PRN PRN Reason: Insomnia Last Admin: 06/25/24 21:27 Dose: 6 mg Documented By: JENY Metoprolol Succinate (Metoprolol Succinate Er 50 Mg Tab.Er.24h) 50 mg PO DAILY [facility]; Protocol Last Admin: 06/26/24 08:50 Dose: 50 mg Documented By: BRANDT Multivitamins/Vitamin C (Multivitamin Tablet) 1 tab PO DAILY [facility] Last Admin: 06/26/24 08:50 Dose: 1 tab Documented By: BRANDT Omeprazole (Omeprazole 20 Mg Capsule.Dr) 20 mg PO BID@0630,1630 [facility] Last Admin: 06/27/24 06:06 Dose: 20 mg Documented By: TOÑO Pharmacy Consult (Consult Rx Etoh Phenob Im/Po) 1 each MISCELLANE ONCE PRN; Protocol PRN Reason: Consult order Phenobarbital (Phenobarbital 15 Mg Tablet) 45 mg PO BID [facility] Stop: 06/27/24 21:01 Last Admin: 06/26/24 21:06 Dose: 45 mg Documented By: TOÑO Phenobarbital (Phenobarbital 30 Mg Tablet) 30 mg PO BID [facility] Stop: 06/29/24 21:01 Phenobarbital (Phenobarbital 30 Mg Tablet) 30 mg PO DAILY [facility] Stop: 07/01/24 09:01 Sodium Chloride (0.9 % Sodium Chloride Flush 3 Ml Syringe) 3 ml IVFLUSH QSHIFT [facility] Last Admin: 06/27/24 00:28 Dose: Not Given Documented By: TOÑO Non-Admin Reason: IV Running Thiamine HCl (Thiamine Hcl 100 Mg Tablet) 100 mg PO BID [facility] Last Admin: 06/26/24 21:05 Dose: 100 mg Documented By: TOÑO Trazodone HCl (Trazodone Hcl 50 Mg Tablet) 150 mg PO BEDTIME [facility] Last Admin: 06/26/24 21:05 Dose: 150 mg Documented By: TOÑO Labs 06/27/24 06:16 06/27/24 06:16 Labs: Laboratory Results - last 24 hr 06/27/24 06:16 MCV 100.0 H MCH 32.8 MCHC 32.8 RDW 14.0 Plt Count 144 L MPV 9.5 Absolute Nucleated RBC 0.000 Nucleated RBC % (auto) 0.0 Anion Gap 13 Estim Creat Clear Calc 74.6 Estimated GFR > 60 Fasting Glucose 132 H Calcium 8.1 L Phosphorus 1.5 L Magnesium 1.6 Total Bilirubin 0.4 Direct Bilirubin 0.1 AST 60 H ALT 52 H Alkaline Phosphatase 50 Total Protein 6.4 L Albumin 3.7 Assessment and Plan (1) Abdominal pain: Status: Acute Plan 59F PMH alcohol dependence, hypothyroid, mood disorder, hypertension presented with weakness, nausea vomiting Acute alcoholic ketoacidosis Thiamine, folic acid, IV hydration, improving elevated troponin suspect demand ischemia no evidence of ACS Alcohol dependence with withdrawal Reports 7 months sobriety but showing signs of withdrawal, treating with phenobarb and monitor CIWA Urinary retention due to acute alcohol intoxication resolved Hypothyroid Levothyroxine Mood disorder clonazepam duloxetine Hypertension lisinopril, toprol DVT prophylaxis with Lovenox Full Code reason for continued hospitalization:still with withdrawal symptoms Quality Stroke Does the patient have a stroke diagnosis?: No VTE Prior VTE?: No VTE Risk Level:: Medical - moderate - high VTE Device Contraindication: Treatment Not Indicated VTE Drug Contraindication: N/A - Med Ordered
[2024-06-27] MEDS: 0.9 % Sodium Chloride Flush 3 ML SYRINGE IVFLUSH ×3 (09:36→19:58)
[2024-06-27] MEDS: Sodium,Potassium Phosphates POWD.PACK 2 PACKET PO (09:36)
[2024-06-27] MEDS: lisinopriL 20 MG TABLET PO (09:37)
[2024-06-27] MEDS: Gabapentin 600 MG TABLET PO ×3 (09:37→19:57)
[2024-06-27] MEDS: Magnesium Oxide 400 MG TABLET PO (09:37)
[2024-06-27] MEDS: Metoprolol Succinate ER 50 MG TAB.ER.24H PO (09:37)
[2024-06-27] MEDS: clonazePAM 0.5 MG TABLET PO ×2 (09:37→19:57)
[2024-06-27] MEDS: PHENobarbitaL 15 MG TABLET 45 MG PO ×2 (09:37→19:58)
[2024-06-27] MEDS: DULoxetine HCl 30 MG CAPSULE.DR PO ×2 (09:37→19:57)
[2024-06-27] MEDS: Multivitamin TABLET 1 TAB PO (09:37)
[2024-06-27] MEDS: Thiamine HCL 100 MG TABLET PO ×2 (09:38→19:57)
[2024-06-27] MEDS: Enoxaparin Sodium 40 MG/0.4 ML SYRINGE SUBCUT (09:38)
[2024-06-27] MEDS: Folic Acid 1 MG TABLET PO (09:38)
[2024-06-27] MEDS: diphenhydrAMINE HCL 50 MG/ML VIAL 12.5 MG IVPUSH ×2 (15:12→20:01)
[2024-06-27] MEDS: Metoclopramide HCl 10 MG/2 ML VIAL 5 MG IVPUSH ×2 (15:13→20:02)
[2024-06-27 18:16] LABS: CDiff Gene PCR NEGATIVE (Negative)
[2024-06-27] MEDS: traZODone HCL 50 MG TABLET 150 MG PO (19:58)
[2024-06-28] VITALS: BP 137/79; PULSE 95; RESP 18; TEMP 36.1; O2SAT 97
[2024-06-28] MEDS: Dextrose 5 % and 0.9 % NaCl 1,000 ML 100 ML IVCONT (00:13)
[2024-06-28 04:00] VITALS: BP 140/86; PULSE 94; RESP 18; TEMP 36.5; O2SAT 95
[2024-06-28] MEDS: Levothyroxine Sodium 112 MCG, Levothyroxine Sodium 25 MCG 137 MCG PO (05:58)
[2024-06-28] MEDS: Omeprazole 20 MG CAPSULE.DR PO (05:58)
[2024-06-28 06:04] LABS: Hematocrit 32.4 % (37.0-47.0); Hemoglobin 10.3 g/dl (12.0-16.0); Mean Corpuscular HGB Conc 31.8 g/dl (31.0-35.0); Mean Corpuscular Hemoglobin 32.4 pg (27.0-33.0); Mean Corpuscular Volume 101.9 fL (80.0-98.0); Mean Platelet Volume 9.7 fL (9.4-12.3); Platelet Count 142 X10*3/uL (160-400); Red Blood Count 3.18 X10*6/uL (4.20-5.50); Red Cell Distribution Width 14.1 % (11.0-16.0); White Blood Count 4.2 X10*3/uL (4.8-10.8)
[2024-06-28 06:13] LABS: Anion Gap 14 (12-20); Blood Urea Nitrogen 5 mg/dL (9-16); Calcium 7.8 mg/dL (8.4-10.2); Carbon Dioxide 25 mmol/L (22-29); Chloride 105 mmol/L (96-108); Creatinine Clr Calc Pharmacy 77.5; Estimated Glomerular Filt Rate > 60; Glucose Fasting 96 mg/dL (60-99); Potassium 3.5 mmol/L (3.3-5.1); Sodium 140 mmol/L (135-145)
[2024-06-28 07:50] VITALS: BP 176/108
[2024-06-28] MEDS: Metoprolol Succinate ER 50 MG TAB.ER.24H PO (07:52)
[2024-06-28] MEDS: Magnesium Oxide 400 MG TABLET PO (07:52)
[2024-06-28] MEDS: Enoxaparin Sodium 40 MG/0.4 ML SYRINGE SUBCUT (07:52)
[2024-06-28] MEDS: Multivitamin TABLET 1 TAB PO (07:52)
[2024-06-28] MEDS: lisinopriL 20 MG TABLET PO (07:52)
[2024-06-28] MEDS: DULoxetine HCl 30 MG CAPSULE.DR PO (07:52)
[2024-06-28] MEDS: Gabapentin 600 MG TABLET PO (07:52)
[2024-06-28] MEDS: Folic Acid 1 MG TABLET PO (07:53)
[2024-06-28] MEDS: PHENobarbitaL 30 MG TABLET PO (07:53)
[2024-06-28] MEDS: clonazePAM 0.5 MG TABLET PO (07:53)
[2024-06-28] MEDS: Thiamine HCL 100 MG TABLET PO (07:54)
[2024-06-28 08:00] VITALS: BP 187/107; PULSE 94; RESP 18; TEMP 36.6; O2SAT 99
--- NOTE | 2024-06-28 08:34 | P.DS_ITS ---
DS: Providers Provider Date of Service: 06/28/24 Date of admission: 06/25/24 17:38 Date of discharge: 06/28/24 Primary care physician: Unknown Physician DS: Diagnosis Discharge Diagnosis (1) Abdominal pain: Status: Acute DS: Summary Hospital Course Hospital Course: from initial hpi: 59F PMH alcohol dependence, hypothyroid, mood disorder, hypertension presented with weakness, nausea vomiting. Patient states that she has been 7 months sober but started to drink again about 2 days prior to presentation. Since then has had severe abdominal pain, nausea, vomiting, poor p.o. intake. Patient found to have alcoholic ketoacidosis, also noting difficulty urinating. hospital course: Patient was admitted for acute alcoholic ketoacidosis which resolved with IV hydration. Was also given thiamine, folic acid. Noted to have mildly elevated troponin although this was likely demand ischemia no evidence of ACS. For alcohol dependence with withdrawal was treated with phenobarbital and withdrawal resolved. She will restarted compensated on discharge. For urinary retention this was brief and due to alcoholic intoxication. For hypothyroidism was continued on levothyroxine. For mood disorder was continued on clonazepam and duloxetine. For hypertension was continued on lisinopril and Toprol. Patient is feeling better will be discharged home. Time Attestation Discharge Coordination Time (in mins): 32 Quality: Safe Use of Opioids Does Pt have an Active Cancer Diagnosis on the Problem List?: No Quality: Stroke Does the patient have a stroke diagnosis?: No Physical Exam Vital Signs: Vital Signs: Last Vital Signs Temp 97.9 F 06/28/24 08:00 Pulse 94 06/28/24 08:00 Resp 18 06/28/24 08:00 BP 187/107 H 06/28/24 08:00 Pulse Ox 99 06/28/24 08:00 O2 Del Method Room Air 06/28/24 08:00 BMI result Body Mass Index 33.5 General: AO X 3, no acute distress Resp: CTA bilateral, no accessory muscles used CVS: S1,S2,RRR GI: soft, non tender, non distended Neuro: motor grossly intact, alert Psych: appropriate affect, appropriate insight DS: Data Data Completed and Pending Labs on day of discharge: Laboratory Results - last 24 hr 06/27/24 06/28/24 16:34 05:48 WBC 4.2 L RBC 3.18 L Hgb 10.3 L Hct 32.4 L MCV 101.9 H MCH 32.4 MCHC 31.8 RDW 14.1 Plt Count 142 L MPV 9.7 Absolute Nucleated RBC 0.000 Nucleated RBC % (auto) 0.0 Sodium 140 Potassium 3.5 Chloride 105 Carbon Dioxide 25 Anion Gap 14 BUN 5 L Creatinine 0.78 Estim Creat Clear Calc 77.5 Estimated GFR > 60 Fasting Glucose 96 Calcium 7.8 L C. difficile Tox B Gene NEGATIVE Discharge Plan Discharge Anticipated Discharge Date/Time: 06/28/24 08:32 Patient Disposition: Home, Self-Care Discharge Diagnosis: [facility] withdrawal Referrals: Physician,Unknown J [Primary Care Provider] - 1 Week Discharge Medications: Continued levothyroxine 137 mcg tablet 137 mcg PO DAILY@0630 gabapentin 600 mg tablet 600 mg PO TID metoprolol succinate 50 mg tablet extended release 24 hr 50 mg PO DAILY lisinopril 20 mg tablet 20 mg PO DAILY clonazepam 0.5 mg tablet 0.5 mg PO BID magnesium oxide 400 mg (241.3 mg magnesium) tablet 400 mg PO DAILY trazodone 150 mg tablet 150 mg PO BEDTIME vitamin B complex [Vitamins B Complex] Tablet 1 tab PO DAILY folic acid 1 mg tablet 1 mg PO DAILY esomeprazole magnesium 20 mg capsule,delayed release(DR/EC) 20 mg PO BID duloxetine 30 mg capsule,delayed release(DR/EC) 30 mg PO BID thiamine HCl (vitamin B1) 100 mg tablet 100 mg PO BID Discharge Orders: Discharge Order (Routine); Ordered 06/28/24 Ordered By: Brant Trinh Diet: Advance to usual diet Activity on Discharge: As tolerated Stand Alone Forms: Patient Portal Discharge page Print Language: [place] Care Plan Goals: Recovery Health Concerns: Alcohol dependence Plan of Treatment: Avoid alcohol, restart acompensate Assessment: See above
--- NOTE | 2024-06-28 09:17 | MHC.CM.PN ---
Patient has been medically cleared for dc to home today, self care. Last IMM was addressed on 06/26/2024.
== END 2024-06-28 11:05 | disposition home or self-care (01) | DRG 897 ==
LOC: HO.ED 17:04 → HO.EDOVER 17:42 → HO.IMC 19:51
PROVIDERS: Student in an Organized Health Care Education/Training Program; Admitting Provider Internal Medicine; Emergency Provider Emergency Medicine Emergency Medical Services; Visit Provider Internal Medicine
DX: F10.239 Alcohol dependence with withdrawal, unspecified (principal); E87.29 Other acidosis; F10.229 Alcohol dependence with intoxication, unspecified; R33.9 Retention of urine, unspecified; F39 Unspecified mood [affective] disorder; I10 Essential (primary) hypertension; E03.9 Hypothyroidism, unspecified; Y90.4 Blood alcohol level of 80-99 mg/100 ml; Z87.891 Personal history of nicotine dependence; Z79.890 Hormone replacement therapy; Z79.899 Other long term (current) drug therapy
CPT/HCPCS: 36415; 80048; 80053; 80076; 80307; 81001; 83690; 83735; 84100; 84484; 85025; 85027; 87493; 93005; 99285; J1200; J1650; J2060; J2560; J2765; J3411

== ENCOUNTER → 2024-06-25 09:37 | Outpatient (BNV) | payer OTHER, SELFPAY | PROVIDERS: Admitting Provider Internal Medicine; Emergency Provider Emergency Medicine Emergency Medical Services; Visit Provider Internal Medicine Cardiovascular Disease | DX: R00.0 Tachycardia, unspecified (principal) | CPT/HCPCS: 93010 ==

== ENCOUNTER → 2024-06-25 17:38 | Outpatient (BNV) | payer OTHER, SELFPAY | PROVIDERS: Admitting Provider Internal Medicine; Emergency Provider Emergency Medicine Emergency Medical Services; Visit Provider Internal Medicine | DX: R10.84 Generalized abdominal pain (principal) | CPT/HCPCS: 99223; 99232; 99239; 99499 ==